=== PATIENT | male | born 1960 | race Caucasian/White ===

== ENCOUNTER 2018-02-18 11:49 | Inpatient (IN) | payer BC ==
[~2018-02-18] VITALS: Ht 165.1 cm; Wt 69.5 kg
[2018-02-18] MEDS ORDERED: CHLORHEXIDINE GLUCONATE 2 % 1 PACK (2 CLOTHS) TOPICAL PRN (13:30)
[2018-02-18] MEDS ORDERED: POVIDONE IODINE 5% (ANTISEPSIS KIT) 4 APPLICATIONS EACH NARE PRN (13:30)
[2018-02-18] MEDS ORDERED: METOPROLOL TARTRATE 25 MG TAB PO PRN (13:30)
[2018-02-18] MEDS ORDERED: LACTATED RINGER'S 1000 ML IV PRN (13:30)
[2018-02-18] MEDS ORDERED: SODIUM CHLORID 0.9% 500 ML IV PRN (13:30)
[2018-02-18] MEDS ORDERED: MORPHINE SULFATE 4 MG/ML INJ IV PUSH PRN (15:00)
[2018-02-18] MEDS ORDERED: SODIUM CHLORIDE 0.9% FLUSH 10 ML FLUSH IV FLUSH PRN (15:00)
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
[2018-02-18] MEDS ORDERED: BUPIVACAINE/EPINEPHRINE 0.5% PF 10 ML VIAL ONE ×2 (15:33→16:02)
[2018-02-18] MEDS ORDERED: ACETAMINOPHEN 1000 MG/100 ML 100 ML IV ONE (17:15)
[2018-02-18] MEDS: SODIUM CHLOR 0.9% 1000 ML INJ 1,000 ML IV SCH (19:11)
--- NOTE | 2018-02-18 19:19 | HHI.PR ---
cc: Jagjit Vann MD Immediate Post Op Note Procedure Date: Feb 18, 2018 Pre Op Diagnosis: (1) Acute appendicitis (2) Abnormal CT scan (3) Elevated white blood cell count (4) Right lower quadrant abdominal pain Post Op Diagnosis: (1) S/P laparoscopic appendectomy (2) Acute appendicitis (3) Elevated white blood cell count (4) Abnormal CT scan (5) Right lower quadrant abdominal pain Surgeon: Jagjit Vann Tumbler Plater(s): Please refer to or records Procedure: Laparoscopic appendectomy for perforated appendicitis Findings: Perforated appendicitis Specimen(s) removed: Appendix ruptured Anesthesia: General Drains: DARNELL IVF Patient to: PACU Patient Condition: Good Implant/Devices: SEE IMPLANT LOG (if applicable) Date/Time of Procedure: SEE SURGICAL CARE RECORD Jagjit Vann MD Feb 18, 2018 19:19
[2018-02-18] MEDS ORDERED: MORPHINE SULFATE 4 MG/ML INJ ONE (19:26)
[2018-02-18] MEDS ORDERED: MIDAZOLAM HCL 2 MG/2 ML VIAL ONE (19:26)
--- NOTE | 2018-02-18 19:35 | MP ---
cc: Jagjit Vann MD, Joseph D MD DATE OF OPERATION: 02/18/2018 PREOPERATIVE DIAGNOSIS: Appendicitis. POSTOPERATIVE DIAGNOSIS: Ruptured appendicitis. PROCEDURE PERFORMED: Laparoscopic appendectomy with placement of intraoperative drain for drainage of ruptured appendix. ANESTHESIA: General. SURGEON: Jagjit Vann MD HISTORY: This is a pleasant 57-year-old gentleman who has about a week to 10-day history of some right lower quadrant pain. He tried to "tough it out". He got a little bit better and then he got worse. He could not go to work. He came to the emergency room, was found to have exquisite right lower quadrant pain and a CT confirming the clinical diagnosis of appendicitis. Surgery was called to assist in management and admit the patient. PROCEDURE IN DETAIL: The patient was taken to the operating room, placed in supine position. After anesthesia, his abdomen was prepped with Betadine. We make an incision just above the umbilicus. Veress needle inserted. Saline load test is performed. The abdomen is insufflated to 15 mmHg. A 10 mm trocar is introduced, camera is introduced. Two other working ports are placed, 5 mm above the pubic tubercle., 5 mm in between the 2 previously placed through an old midline scar. The appendix can be seen. It is obviously inflamed, somewhat retrocecal. With elevating it up, it appears that it has ruptured. The purulent pus is evacuated with the suction device. We then take the mesentery down with an Harmonic scalpel sealing the appendiceal artery with the Harmonic scalpel all the way to the base of the appendix. We are able to place 2 ties around the base of the appendix and the appendix is then amputated, placed in an Endo Catch and pulled out through the umbilical incision and passed off the field. Because of the amount of inflammatory response, this is copiously irrigated. I placed a DARNELL in the colic gutter in the retrocecal area down into the pelvis through the infraumbilical incision. We then check our dissection site. There is good hemostasis. The liver is checked and the gallbladder appears normal. No other gross abnormality is seen. He does have a little bit of fatty replacement tissue at his midline scar. The trocars are removed. The umbilical fascial defect is closed with a 0 Vicryl and skin is closed with a 4-0 Monocryl at the 2 other sites. The drain is secured to the skin with 3-0 nylon. The patient tolerated the procedure well, had no immediate postop complications. MD LAKESHA Metzger/ , 07:14 PM , 07:33 PM
[2018-02-18] MEDS ORDERED: ONDANSETRON ODT 4 MG TAB PO PRN (19:45)
[2018-02-18] MEDS: ACETAMINOPHEN 1000 MG/100 ML 100 ML IV SCH ×2 (19:45→21:34)
[2018-02-18] MEDS ORDERED: DO NOT ADM ANY ANTICOAGULANT DRUGS PRN (20:00)
[2018-02-18 20:30] VITALS: BP 119/66; PULSE 85; RESP 16; TEMP 98.1; O2SAT 93
[2018-02-18] MEDS: SODIUM CHLORIDE 0.9% FLUSH 10 ML FLUSH IV FLUSH SCH (21:00)
[2018-02-18] MEDS: ACETAMINOPHEN/HYDROcodone 325 MG/5 MG TAB PO PRN (21:34)
[2018-02-19] VITALS: BP 131/78; PULSE 78; RESP 16; TEMP 97.7; O2SAT 90
[2018-02-19] MEDS: PIPERACIL-TAZO 3.375 GM PREMIX 50 ML IV SCH ×3 (02:08→17:49)
[2018-02-19] MEDS: ACETAMINOPHEN/HYDROcodone 325 MG/5 MG TAB PO PRN ×4 (02:09→17:50)
[2018-02-19] MEDS: SODIUM CHLOR 0.9% 1000 ML INJ 1,000 ML IV SCH ×4 (02:10→22:53)
[2018-02-19 04:00] VITALS: BP 125/72; PULSE 80; RESP 16; TEMP 98.3; O2SAT 93
[2018-02-19 08:00] VITALS: BP 107/57; PULSE 90; RESP 16; TEMP 98.1; O2SAT 92
--- NOTE | 2018-02-19 08:29 | HHI.PR ---
cc: Husam Knapp MD Subjective Subjective Notes DAILY PROGRESS NOTE FOR SURGICAL ATTENDING, DR. HUSAM KNAPP Doing well decrease abdominal pain Moving around a little bit Objective Vitals/I&O Vital Signs Date Time Temp Pulse Resp B/P (MAP) Pulse Ox O2 Delivery O2 Flow Rate FiO2 02/19/18 04:00 98.3 80 16 125/72 (89) 93 02/18/18 19:55 Nasal Cannula [address] abdomen/pelvis--- acute appendicitis with significant periappendiceal inflammation and small periappendiceal fluid Cardiovascular: Regular Abdomen: Post-op tenderness Extremities: SCD's on Narrative Exam DARNELL in place with serosanguineous drainage A/P Problem List: (1) S/P laparoscopic appendectomy ICD Codes: Z90.49 - Acquired absence of other specified parts of digestive tract (2) Abdominal rebound tenderness of right lower quadrant ICD Codes: R10.823 - Right lower quadrant rebound abdominal tenderness Status: Acute (3) Acute appendicitis ICD Codes: K35.80 - Unspecified acute appendicitis Status: Acute (4) Elevated white blood cell count ICD Codes: D72.829 - Elevated white blood cell count, unspecified Status: Acute (5) Abnormal CT scan ICD Codes: R93.8 - Abnormal findings on diagnostic imaging of other specified body structures (6) Right lower quadrant abdominal pain ICD Codes: R10.31 - Right lower quadrant pain Status: Acute Assessment and Plan 57-year-old gentleman with perforated appendicitis status post laparoscopic appendectomy We will set him up for discharge tomorrow on p.o. antibiotics and p.o. pain medication Instruct nurses to educate the patient about DARNELL care He will need a follow-up appointment in my office Thursday or Thursday of next week Attending Statement NOTE FOR SURGICAL ATTENDING, DR. HUSAM KNAPP I attest that I had a [id number] encounter with the patient on the same day, and personally performed and documented my assessment and findings in the medical record. The following services were provided during this hospital visit: Chart data review, vital sign assessments/reviewing monitor data Review of consultations notes if present. Medication orders/review and/or management Ordering and/or reviewing lab tests Ordering and/or interpreting/reviewing x-rays and/or diagnostic studies Care of the patient and discussion of the patient with the care team Documentation time To help prompt me to consider important information that might be impacting today's encounter and assessment, Information from prior notes written by myself or my colleagues may have been "brought forward/copy and pasted" into today's note. Problem Qualifiers (1) Acute appendicitis: Qualified Codes: K35.2 - Acute appendicitis with generalized peritonitis (2) Elevated white blood cell count: Qualified Codes: D72.825 - Bandemia Husam Knapp MD Feb 19, 2018 08:29
[2018-02-19] MEDS ORDERED: LEVA500T33 PO (08:35)
[2018-02-19] MEDS ORDERED: NORC5TAB PO (08:35)
[2018-02-19] MEDS: ACETAMINOPHEN 1000 MG/100 ML 100 ML IV SCH ×2 (08:58→12:54)
[2018-02-19] MEDS: PANTOPRAZOLE SOD 20 MG DELAYED RELEASE TAB PO SCH (08:59)
[2018-02-19] MEDS: SODIUM CHLORIDE 0.9% FLUSH 10 ML FLUSH IV FLUSH SCH ×2 (09:00→20:53)
[2018-02-19 13:00] VITALS: BP 113/82; PULSE 80; RESP 17; TEMP 97.5; O2SAT 97
[2018-02-19 17:50] VITALS: BP 117/72; PULSE 92; RESP 16; TEMP 98.2; O2SAT 93
[2018-02-19 20:00] VITALS: BP 117/68; PULSE 88; RESP 19; TEMP 98.7; O2SAT 92
[2018-02-20] VITALS: BP 126/71; PULSE 96; RESP 18; TEMP 99.1; O2SAT 92
[2018-02-20] MEDS: ACETAMINOPHEN/HYDROcodone 325 MG/5 MG TAB PO PRN ×2 (01:00→10:40)
[2018-02-20] MEDS: PIPERACIL-TAZO 3.375 GM PREMIX 50 ML IV SCH ×3 (01:42→18:00)
[2018-02-20 04:00] VITALS: BP 130/73; PULSE 90; RESP 17; TEMP 98.6; O2SAT 92
[2018-02-20] MEDS: SODIUM CHLOR 0.9% 1000 ML INJ 1,000 ML IV SCH ×2 (06:48→14:48)
[2018-02-20 08:00] VITALS: BP 144/82; PULSE 96; RESP 16; TEMP 99.4; O2SAT 90
[2018-02-20] MEDS: SODIUM CHLORIDE 0.9% FLUSH 10 ML FLUSH IV FLUSH SCH (09:00)
[2018-02-20] MEDS: PANTOPRAZOLE SOD 20 MG DELAYED RELEASE TAB PO SCH (10:39)
[2018-02-20 12:00] VITALS: BP 161/88; PULSE 101; RESP 16; TEMP 99.5; O2SAT 93
--- NOTE | 2018-02-20 14:28 | HHI.PR ---
Subjective Subjective Notes feels better today no BM, tolerating PO wants to go home Objective Vitals/I&O Vital Signs Date Time Temp Pulse Resp B/P (MAP) Pulse Ox O2 Delivery O2 Flow Rate FiO2 02/20/18 12:00 99.5 101 16 161/88 (112) 93 02/18/18 19:55 Nasal Cannula [address] abdomen/pelvis--- acute appendicitis with significant periappendiceal inflammation and small periappendiceal fluid Cardiovascular: Regular Lungs: Clear Abdomen: Non-distended, Post-op tenderness Narrative Exam DARNELL with SS cloudy fluid A/P Problem List: (1) S/P laparoscopic appendectomy ICD Codes: Z90.49 - Acquired absence of other specified parts of digestive tract (2) Abdominal rebound tenderness of right lower quadrant ICD Codes: R10.823 - Right lower quadrant rebound abdominal tenderness Status: Acute (3) Acute appendicitis ICD Codes: K35.80 - Unspecified acute appendicitis Status: Acute (4) Elevated white blood cell count ICD Codes: D72.829 - Elevated white blood cell count, unspecified Status: Acute (5) Abnormal CT scan ICD Codes: R93.8 - Abnormal findings on diagnostic imaging of other specified body structures (6) Right lower quadrant abdominal pain ICD Codes: R10.31 - Right lower quadrant pain Status: Acute Assessment and Plan 57yo male s/p lap appy for perforated appendicitis, stable. AF, VSS tolerating PO pain ok OK to DC home today Problem Qualifiers (1) Acute appendicitis: Qualified Codes: K35.2 - Acute appendicitis with generalized peritonitis (2) Elevated white blood cell count: Qualified Codes: D72.825 - Bandemia Boubacar Dominguez MD Feb 20, 2018 14:28
[2018-02-20 16:00] VITALS: BP 139/82; PULSE 91; RESP 16; TEMP 98.7; O2SAT 91
== END 2018-02-20 19:29 | disposition home or self-care (01) | DRG 340 ==
LOC: HOR 12:57 → HSDI 13:07 → OBSVTOIN 19:31 → N06B 19:55
PROVIDERS: ADMIT Surgery; ATTEND Surgery
PROC: 0DTJ4ZZ Resection of Appendix, Percutaneous Endoscopic Approach (ICD-10-PCS; principal; 2018-02-18 17:34)
DX: K35.2 Acute appendicitis with generalized peritonitis (principal); D72.825 Bandemia; Z72.0 Tobacco use
CPT/HCPCS: 88304; J0131; J2250; J2270; J2543; J3010; J7030